=== PATIENT | female | born 1975 | race Caucasian/White ===

== ENCOUNTER 2022-01-26 18:17 | Emergency (ER) | payer MEDICAID, OTHER ==
[2022-01-26] MEDS ORDERED: Sodium Chloride 0.9% 2.5 ML Syringe FLUSH PRN (18:43)
[2022-01-26] MEDS ORDERED: Sodium Chloride 0.9% 10 ML Syringe FLUSH PRN (18:43)
[2022-01-26] MEDS ORDERED: Morphine 4 MG/ML Syringe IVPUSH ONE (19:04)
[2022-01-26] MEDS ORDERED: Ondansetron 4 MG/2 ML SDV IVPUSH ONE (19:05)
[2022-01-26 19:37] LABS: POTASSIUM,K 3.9 mmol/L (3.5-5.1)
[2022-01-26] MEDS ORDERED: Iopamidol 755 MG/ML 500 ML Multipack Bottle IVPUSH STA (20:11)
== END 2022-01-26 20:56 | disposition home or self-care (01) ==
LOC: MW.ED 18:17
DX: K57.32 Diverticulitis of large intestine without perforation or abscess without bleeding (principal)
CPT/HCPCS: 36415; 74177; 80053; 81001; 83690; 84703; 85025; 96374; 96375; 99284; J2270; J2405; J3490; Q9967

== ENCOUNTER 2022-03-15 10:30 | Day surgery (SDC) | payer MEDICAID ==
[~2022-03-15 10:30] MED LIST: Lactated Ringers 1,000 ML IV SCH
[2022-03-15] MEDS ORDERED: Lidocaine 2% 5 ML SDV ONE (12:13)
[2022-03-15] MEDS ORDERED: Propofol 200 MG/20 ML SDV ONE ×2 (12:13→13:06)
[2022-03-15] MEDS ORDERED: Lactated Ringers 1,000 ML IV SCH (13:45)
== END 2022-03-15 14:17 | disposition home or self-care (01) ==
LOC: MW.SDS 10:30
PROVIDERS: ATTEND Surgery
DX: Z12.11 Encounter for screening for malignant neoplasm of colon (principal); K29.00 Acute gastritis without bleeding; K29.50 Unspecified chronic gastritis without bleeding; K57.32 Diverticulitis of large intestine without perforation or abscess without bleeding; E66.9 Obesity, unspecified; R42 Dizziness and giddiness; Z68.41 Body mass index [BMI] 40.0-44.9, adult; Z98.890 Other specified postprocedural states
CPT/HCPCS: 43239; 45378; 81025; J2704; J7120; 00813